=== PATIENT | female | born 1940 | race Caucasian/White ===

== ENCOUNTER 2021-06-19 01:16 | Inpatient (IN) | payer MEDICARE, OTHER ==
[~2021-06-19] VITALS: Ht 162.6 cm; Wt 76.0 kg
[2021-06-19] MEDS ORDERED: ONDANSETRON HCL 4MG/2ML INJ IV STA (01:23)
[2021-06-19] MEDS ORDERED: LEVETIRACETAM 500MG PREMIX 100 ML IV ONE (01:30)
[2021-06-19 02:13] LABS: CLARITY URINE CLEAR (CLEAR); COLOR URINE YELLOW (YELLOW); KETONES URINE TRACE (NEGATIVE); LEUKOCYTE ESTERASE URINE 1+ (NEGATIVE); NITRITE URINE NEGATIVE (NEGATIVE); OCCULT BLOOD URINE 2+ (NEGATIVE); PROTEIN URINE 2+ (NEGATIVE); SPECIFIC GRAVITY URINE 1.026 (1.005-1.030); UROBILINOGEN URINE 0.2 E.U./dL (0.2-1.0)
[2021-06-19 02:17] LABS: BASOPHILS % 0.5 % (0.0-2.0); EOSINOPHILS % 1.1 % (0.0-5.0); HEMATOCRIT. 41.7 % (36.0-48.0); HEMOGLOBIN. 14.4 g/dL (12.0-16.0); LYMPHOCYTES % 15.7 % (20.0-50.0); MEAN CORPUSCULAR HEMOGLOBIN 31.3 pg (28.0-32.0); MEAN CORPUSCULAR VOLUME 90.4 fL (81.0-99.0); MEAN PLATELET VOLUME 9.9 fl (7.4-10.4); MONOCYTES % 6.5 % (2.0-8.0); NEUTROPHILS % 76.2 % (40.0-76.0); PLATELET 201 x1000/uL (130-400); RED BLOOD CELL COUNT 4.62 mill/uL (4.2-5.4); RED CELL DISTRIBUTION WIDTH 13.3 % (11.6-14.6)
[2021-06-19 02:27] LABS: INR 0.9; PROTHROMBIN TIME 10.1 sec (9.6-11.0)
[2021-06-19 02:42] LABS: BG BASE EXCESS -4.1 mmol/L (-2.0-2.0); BG CARBOXYHEMOGLOBIN 0.1 % (0.5-1.5); BG DEOXYHEMOGLOBIN 4.8 % (0.0-5.0); BG FRACTION INSPIRED OXYGEN 100; BG HCO3 ACT 21.1 mmol/L (22.0-26.0); BG METHEMOGLOBIN 0.3 % (0.0-1.5); BG OXYGEN SATURATION 95.2 % (92.0-98.5); BG OXYHEMOGLOBIN 94.8 % (94.0-97.0); BG PCO2 39.3 mmHg (35.0-45.0); BG PH 7.348 (7.350-7.450); BG PO2 81.4 mmHg (75.0-100.0); BG SAMPLE SITE LEFT RADIAL; BG TOTAL HEMOGLOBIN 13.4 g/dL (12.0-18.0); BG VENT MODE MASK - NRB
[2021-06-19 03:03] LABS: CHLORIDE 100 mEq/L (98-107)
[2021-06-19] MEDS ORDERED: INSULIN REGULAR (DRIP) 100 UNITS in SODIUM CHLORIDE 0.9% 99 ML IV SCH (05:30)
[2021-06-19] MEDS ORDERED: CEFTRIAXONE 1 G PREMIX 50 ML IV NR (05:30)
[2021-06-19] MEDS ORDERED: METOPROLOL TARTRATE 5MG/5ML VIAL IV SCH (08:15)
[2021-06-19] MEDS ORDERED: METOPROLOL TARTRATE 5MG/5ML VIAL IV PRN (11:45)
[2021-06-19] MEDS ORDERED: HYDRALAZINE 20MG/ML VIAL IV PRN (12:15)
[2021-06-19] MEDS ORDERED: SODIUM CHLORIDE 0.9% 1,000 ML IV SCH (12:15)
[2021-06-19] MEDS ORDERED: ACETAMINOPHEN 650MG SUPP PR NR (13:15)
[2021-06-19 16:22] LABS: CHLORIDE 110 mEq/L (98-107)
[2021-06-19] MEDS ORDERED: BLOOD SUGAR DIAGNOSTIC STRIP TEST SCH (17:00)
[2021-06-19] MEDS ORDERED: LEVETIRACETAM 500 MG in SODIUM CHLORIDE 0.9% 100 ML IV SCH (17:00)
[2021-06-19] MEDS ORDERED: ACETAMINOPHEN 650MG SUPP PR PRN ×2 (17:00)
[2021-06-19] MEDS ORDERED: ONDANSETRON HCL 4MG/2ML INJ IV PRN (17:00)
[2021-06-19] MEDS ORDERED: DEXTROSE 50% WATER 50ML SYRINGE IV PRN (17:00)
[2021-06-19] MEDS: SODIUM CHLORIDE 0.9% 1,000 ML IV SCH ×2 (17:00→23:40)
[2021-06-19] MEDS ORDERED: DIPHENHYDRAMINE 50MG/ML VIAL IV PRN (17:00)
[2021-06-19] MEDS ORDERED: POTASSIUM CHLORIDE INJ 40 MEQ in DEXT 5% WATER 250 ML IV NR (21:30)
[2021-06-19] MEDS: LEVETIRACETAM 500MG PREMIX 100 ML IV SCH (22:23)
[2021-06-20 04:41] LABS: BASOPHILS % 0.2 % (0.0-2.0); HEMATOCRIT. 41.3 % (36.0-48.0); HEMOGLOBIN. 14.1 g/dL (12.0-16.0); LYMPHOCYTES % 11.3 % (20.0-50.0); MEAN CORPUSCULAR HEMOGLOBIN 30.8 pg (28.0-32.0); MEAN PLATELET VOLUME 9.8 fl (7.4-10.4); MONOCYTES % 7.4 % (2.0-8.0); NEUTROPHILS % 81.1 % (40.0-76.0); PLATELET 172 x1000/uL (130-400); RED BLOOD CELL COUNT 4.59 mill/uL (4.2-5.4); RED CELL DISTRIBUTION WIDTH 13.6 % (11.6-14.6)
[2021-06-20 04:44] LABS: CHLORIDE 113 mEq/L (98-107)
[2021-06-20 04:55] LABS: PHOSPHORUS 3.9 mg/dL (2.5-4.9)
[2021-06-20] MEDS ORDERED: DEXTROSE 50% WATER 50ML SYRINGE IV PRN (05:45)
[2021-06-20] MEDS ORDERED: CEFTRIAXONE 1 G PREMIX 50 ML IV SCH (06:30)
[2021-06-20] MEDS: BLOOD SUGAR DIAGNOSTIC STRIP TEST SCH ×4 (06:51→20:45)
[2021-06-20] MEDS: SODIUM CHLORIDE 0.9% 1,000 ML IV SCH ×3 (06:51→21:50)
[2021-06-20] MEDS: INSULIN LISPRO (HIGH DOSE) 100 UNITS/ML SUBCUT SCH ×4 (07:06→20:46)
[2021-06-20] MEDS: CEFTRIAXONE 1,000 MG in DEXTROSE 5% WATER 50 ML IV SCH (08:33)
[2021-06-20] MEDS: LEVETIRACETAM 500MG PREMIX 100 ML IV SCH ×2 (08:33→21:47)
[2021-06-20] MEDS: PANTOPRAZOLE SODIUM 40 MG/VIAL IV SCH (08:36)
[2021-06-20 15:42] VITALS: BP 137/88
[2021-06-20 17:03] VITALS: BP 126/73
[2021-06-20 17:15] VITALS: BP 137/88
[2021-06-20] MEDS: LORAZEPAM 2MG/ML CPJ IV PRN (17:15)
[2021-06-20 18:00] VITALS: BP 134/73
[2021-06-20] MEDS ORDERED: MAGNESIUM 4 G PREMIX 100 ML IV NR (18:00)
[2021-06-20] MEDS: ENOXAPARIN 40MG/0.4ML SYR SUBCUT SCH (19:19)
[2021-06-20 20:00] VITALS: BP 115/76
[2021-06-20 22:00] VITALS: BP 151/90
[2021-06-20] MEDS ORDERED: INSULIN GLARGINE UD 100 UNITS/ML SYR SUBCUT SCH (22:00)
[2021-06-21] VITALS (12 sets, daily range): BP systolic 122–197; BP diastolic 62–99
[2021-06-21] MEDS: SODIUM CHLORIDE 0.9% 1,000 ML IV SCH ×2 (02:20→08:57)
[2021-06-21] MEDS: BLOOD SUGAR DIAGNOSTIC STRIP TEST SCH ×4 (06:50→20:40)
[2021-06-21] MEDS: CEFTRIAXONE 1,000 MG in DEXTROSE 5% WATER 50 ML IV SCH (08:02)
[2021-06-21] MEDS: INSULIN LISPRO (HIGH DOSE) 100 UNITS/ML SUBCUT SCH ×4 (08:07→20:52)
[2021-06-21] MEDS: HYDRALAZINE 20MG/ML VIAL IV PRN ×2 (08:08→16:44)
[2021-06-21] MEDS: LEVETIRACETAM 500MG PREMIX 100 ML IV SCH ×2 (08:57→20:51)
[2021-06-21] MEDS: PANTOPRAZOLE SODIUM 40 MG/VIAL IV SCH (08:58)
[2021-06-21 09:53] LABS: BASOPHILS % 0.4 % (0.0-2.0); EOSINOPHILS % 1.8 % (0.0-5.0); HEMATOCRIT. 40.7 % (36.0-48.0); LYMPHOCYTES % 15.7 % (20.0-50.0); MEAN PLATELET VOLUME 9.5 fl (7.4-10.4); MONOCYTES % 6.1 % (2.0-8.0); PLATELET 185 x1000/uL (130-400); RED BLOOD CELL COUNT 4.67 mill/uL (4.2-5.4); RED CELL DISTRIBUTION WIDTH 13.8 % (11.6-14.6)
[2021-06-21 10:04] LABS: PHOSPHORUS 2.9 mg/dL (2.5-4.9)
[2021-06-21] MEDS ORDERED: FUROSEMIDE 40MG/4ML VIAL IVP SCH (10:30)
[2021-06-21] MEDS ORDERED: INSULIN GLARGINE UD 100 UNITS/ML SYR SUBCUT NR (11:00)
[2021-06-21 11:02] LABS: BG BASE EXCESS -4.7 mmol/L (-2.0-2.0); BG CARBOXYHEMOGLOBIN 0.5 % (0.5-1.5); BG FRACTION INSPIRED OXYGEN 21; BG HCO3 ACT 18.1 mmol/L (22.0-26.0); BG METHEMOGLOBIN 0.3 % (0.0-1.5); BG OXYHEMOGLOBIN 96.2 % (94.0-97.0); BG PCO2 27.7 mmHg (35.0-45.0); BG PH 7.432 (7.350-7.450); BG PO2 87.6 mmHg (75.0-100.0); BG SAMPLE SITE RIGHT RADIAL; BG TOTAL HEMOGLOBIN 14.2 g/dL (12.0-18.0); BG VENT MODE ROOM AIR
[2021-06-21] MEDS ORDERED: LACTULOSE 20G/30ML UDC PO PRN (12:00)
[2021-06-21] MEDS ORDERED: IPRATROPIUM/ALBUTEROL 0.5-3(2.5)MG/3ML NEB HHN PRN (12:00)
[2021-06-21] MEDS ORDERED: HYDROCODONE/ACETAMINOPHEN 5/325MG TABLET PO PRN (12:00)
[2021-06-21] MEDS ORDERED: NALOXONE HCL 0.4MG/ML VIAL IV PRN (12:15)
[2021-06-21] MEDS ORDERED: INSULIN LISPRO 100 UNITS/ML SUBCUT NR (17:00)
[2021-06-21] MEDS: ENOXAPARIN 40MG/0.4ML SYR SUBCUT SCH (18:53)
[2021-06-21] MEDS: THIAMINE HCL 100MG TABLET PO SCH (20:51)
[2021-06-21] MEDS: INSULIN GLARGINE UD 100 UNITS/ML SYR SUBCUT SCH (21:06)
[2021-06-22] VITALS (12 sets, daily range): BP systolic 119–182; BP diastolic 26–105
[2021-06-22] MEDS: LORAZEPAM 2MG/ML CPJ IV PRN (01:03)
[2021-06-22] MEDS: HYDRALAZINE 20MG/ML VIAL IV PRN ×2 (03:43→05:11)
[2021-06-22] MEDS: BLOOD SUGAR DIAGNOSTIC STRIP TEST SCH ×4 (06:05→19:50)
[2021-06-22 07:27] LABS: BASOPHILS % 0.4 % (0.0-2.0); EOSINOPHILS % 0.8 % (0.0-5.0); HEMATOCRIT. 39.3 % (36.0-48.0); HEMOGLOBIN. 13.6 g/dL (12.0-16.0); LYMPHOCYTES % 10.1 % (20.0-50.0); MEAN CORPUSCULAR VOLUME 86.8 fL (81.0-99.0); MEAN PLATELET VOLUME 9.6 fl (7.4-10.4); MONOCYTES % 9.2 % (2.0-8.0); NEUTROPHILS % 79.5 % (40.0-76.0); PLATELET 192 x1000/uL (130-400); RED BLOOD CELL COUNT 4.52 mill/uL (4.2-5.4); RED CELL DISTRIBUTION WIDTH 13.5 % (11.6-14.6)
[2021-06-22] MEDS: INSULIN LISPRO (HIGH DOSE) 100 UNITS/ML SUBCUT SCH ×4 (07:32→22:08)
[2021-06-22] MEDS: CEFTRIAXONE 1,000 MG in DEXTROSE 5% WATER 50 ML IV SCH (07:32)
[2021-06-22] MEDS: LEVETIRACETAM 500MG PREMIX 100 ML IV SCH (08:24)
[2021-06-22] MEDS: FAMOTIDINE 20MG/2ML VIAL IV SCH (08:24)
[2021-06-22] MEDS: THIAMINE HCL 100MG TABLET PO SCH ×2 (08:24→17:37)
[2021-06-22] MEDS: INSULIN GLARGINE UD 100 UNITS/ML SYR SUBCUT SCH ×2 (10:20→22:07)
[2021-06-22] MEDS ORDERED: SODIUM CHLORIDE 0.9% 250 ML IV ONE (10:45)
[2021-06-22] MEDS ORDERED: METOPROLOL TARTRATE 50MG TABLET PO NR (10:45)
[2021-06-22] MEDS ORDERED: POTASSIUM CHLORIDE 20MEQ TABLET SR PO NR (10:45)
[2021-06-22] MEDS ORDERED: INSULIN GLARGINE UD 100 UNITS/ML SYR SUBCUT NR (13:00)
[2021-06-22] MEDS ORDERED: LEVOFLOXACIN 500MG PREMIX 100 ML IV SCH (16:00)
[2021-06-22] MEDS: ENOXAPARIN 40MG/0.4ML SYR SUBCUT SCH (17:58)
[2021-06-22] MEDS: LEVETIRACETAM 500MG/5ML CUP PO SCH (19:44)
[2021-06-22] MEDS ORDERED: HALOPERIDOL LACTATE 5MG/ML VIAL IM PRN (19:45)
[2021-06-22] MEDS: METOPROLOL TARTRATE 50MG TABLET PO SCH (19:50)
[2021-06-23] VITALS (13 sets, daily range): BP systolic 106–188; BP diastolic 48–95
[2021-06-23] MEDS: LORAZEPAM 2MG/ML CPJ IV PRN (01:22)
[2021-06-23] MEDS: HYDRALAZINE 20MG/ML VIAL IV PRN ×2 (03:40→12:24)
[2021-06-23] MEDS: BLOOD SUGAR DIAGNOSTIC STRIP TEST SCH ×5 (05:48→22:53)
[2021-06-23] MEDS: INSULIN LISPRO (HIGH DOSE) 100 UNITS/ML SUBCUT SCH ×3 (06:01→16:44)
[2021-06-23 06:34] LABS: HEMOGLOBIN. 14.2 g/dL (12.0-16.0); MEAN CORPUSCULAR VOLUME 86.6 fL (81.0-99.0); MEAN PLATELET VOLUME 9.4 fl (7.4-10.4); PLATELET 234 x1000/uL (130-400); RED BLOOD CELL COUNT 4.74 mill/uL (4.2-5.4); RED CELL DISTRIBUTION WIDTH 13.6 % (11.6-14.6)
[2021-06-23] MEDS: THIAMINE HCL 100MG TABLET PO SCH ×3 (08:01→17:54)
[2021-06-23] MEDS: LEVETIRACETAM 500MG/5ML CUP PO SCH ×2 (08:01→22:51)
[2021-06-23] MEDS: FAMOTIDINE 20MG/2ML VIAL IV SCH (08:01)
[2021-06-23] MEDS: METOPROLOL TARTRATE 50MG TABLET PO SCH (08:02)
[2021-06-23] MEDS: INSULIN GLARGINE UD 100 UNITS/ML SYR SUBCUT SCH ×2 (09:47→22:52)
[2021-06-23] MEDS ORDERED: DILTIAZEM HCL 30MG TABLET PO SCH (10:45)
[2021-06-23] MEDS ORDERED: HALOPERIDOL LACTATE 5MG/ML VIAL IM SCH (11:30)
[2021-06-23] MEDS: DILTIAZEM HCL 30MG TABLET PO SCH ×3 (12:24→18:00)
[2021-06-23 12:33] LABS: BG BASE EXCESS -5.2 mmol/L (-2.0-2.0); BG CARBOXYHEMOGLOBIN 0.5 % (0.5-1.5); BG DEOXYHEMOGLOBIN 4.8 % (0.0-5.0); BG FRACTION INSPIRED OXYGEN 21; BG HCO3 ACT 17.5 mmol/L (22.0-26.0); BG METHEMOGLOBIN 0.3 % (0.0-1.5); BG OXYGEN SATURATION 95.2 % (92.0-98.5); BG OXYHEMOGLOBIN 94.4 % (94.0-97.0); BG PH 7.429 (7.350-7.450); BG PO2 72.4 mmHg (75.0-100.0); BG SAMPLE SITE LEFT RADIAL; BG TOTAL HEMOGLOBIN 14.7 g/dL (12.0-18.0); BG VENT MODE ROOM AIR
[2021-06-23] MEDS ORDERED: LEVOFLOXACIN 250MG TABLET PO SCH (15:00)
[2021-06-23 15:31] LABS: PLATELET ESTIMATE NORMAL
[2021-06-23] MEDS: ENOXAPARIN 40MG/0.4ML SYR SUBCUT SCH ×2 (17:53→18:15)
[2021-06-23] MEDS: INSULIN LISPRO 100 UNITS/ML SUBCUT SCH ×2 (17:55→22:00)
[2021-06-23] MEDS: SODIUM CHLORIDE 0.45% 1,000 ML IV SCH (17:56)
[2021-06-23 18:50] LABS: BG CARBOXYHEMOGLOBIN 0.7 % (0.5-1.5); BG DEOXYHEMOGLOBIN 4.8 % (0.0-5.0); BG FRACTION INSPIRED OXYGEN 21; BG HCO3 ACT 16.5 mmol/L (22.0-26.0); BG METHEMOGLOBIN 0.4 % (0.0-1.5); BG OXYGEN SATURATION 95.1 % (92.0-98.5); BG OXYHEMOGLOBIN 94.1 % (94.0-97.0); BG PCO2 25.8 mmHg (35.0-45.0); BG PH 7.424 (7.350-7.450); BG SAMPLE SITE LEFT RADIAL; BG TOTAL HEMOGLOBIN 15.3 g/dL (12.0-18.0); BG VENT MODE ROOM AIR
[2021-06-23 21:59] LABS: CHLORIDE 116 mEq/L (98-107)
[2021-06-24] VITALS (12 sets, daily range): BP systolic 109–158; BP diastolic 60–98
[2021-06-24] MEDS: DILTIAZEM HCL 30MG TABLET PO SCH ×4 (00:32→17:33)
[2021-06-24] MEDS: INSULIN LISPRO 100 UNITS/ML SUBCUT SCH ×3 (02:00→10:35)
[2021-06-24] MEDS: BLOOD SUGAR DIAGNOSTIC STRIP TEST SCH ×3 (02:00→10:25)
[2021-06-24] MEDS: SODIUM CHLORIDE 0.45% 1,000 ML IV SCH ×2 (03:45→13:46)
[2021-06-24] MEDS: LEVETIRACETAM 500MG/5ML CUP PO SCH (08:44)
[2021-06-24] MEDS: THIAMINE HCL 100MG TABLET PO SCH ×2 (08:44→17:32)
[2021-06-24] MEDS ORDERED: FAMOTIDINE 20MG TABLET PO SCH (09:00)
[2021-06-24] MEDS ORDERED: LIDOCAINE HCL 1% 20ML VIAL (Pyxis) INJ ONE (09:12)
[2021-06-24] MEDS: INSULIN GLARGINE UD 100 UNITS/ML SYR SUBCUT SCH (10:35)
[2021-06-24 10:47] LABS: BASOPHILS % 0.2 % (0.0-2.0); EOSINOPHILS % 1.9 % (0.0-5.0); HEMATOCRIT. 38.2 % (36.0-48.0); HEMOGLOBIN. 12.9 g/dL (12.0-16.0); LYMPHOCYTES % 7.5 % (20.0-50.0); MEAN CORPUSCULAR HEMOGLOBIN 30.1 pg (28.0-32.0); MEAN PLATELET VOLUME 9.6 fl (7.4-10.4); MONOCYTES % 6.6 % (2.0-8.0); NEUTROPHILS % 83.8 % (40.0-76.0); PLATELET 199 x1000/uL (130-400); RED BLOOD CELL COUNT 4.29 mill/uL (4.2-5.4); RED CELL DISTRIBUTION WIDTH 13.5 % (11.6-14.6)
[2021-06-24] MEDS ORDERED: ENOXAPARIN 30MG/0.3ML SYR SUBCUT SCH (14:00)
[2021-06-24] MEDS ORDERED: LEVOFLOXACIN 250MG PREMIX 50 ML IV SCH (16:00)
[2021-06-24] MEDS ORDERED: LEVOFLOXACIN 500MG PREMIX 100 ML IV SCH (16:00)
[2021-06-24] MEDS ORDERED: BLOOD SUGAR DIAGNOSTIC STRIP TEST SCH (16:50)
[2021-06-24] MEDS ORDERED: INSULIN LISPRO 100 UNITS/ML SUBCUT SCH (16:50)
[2021-06-24] MEDS ORDERED: LEVOFLOXACIN 250MG TABLET PO SCH (17:00)
== END 2021-06-24 21:22 | DRG 871 ==
LOC: ER 01:16 → MICUSO 05:20 → 3WST 06-20 13:48
PROVIDERS: ADMIT Internal Medicine; ATTEND Internal Medicine
PROC: 4A10X4Z Monitoring of Central Nervous Electrical Activity, External Approach (ICD-10-PCS; principal; 2021-06-22)
PROC: 02HV33Z Insertion of Infusion Device into Superior Vena Cava, Percutaneous Approach (ICD-10-PCS; 2021-06-24)
PROC: B518ZZA Fluoroscopy of Superior Vena Cava, Guidance (ICD-10-PCS; 2021-06-24)
PROC: B548ZZA Ultrasonography of Superior Vena Cava, Guidance (ICD-10-PCS; 2021-06-24)
DX: A41.9 Sepsis, unspecified organism (principal); E11.00 Type 2 diabetes mellitus with hyperosmolarity without nonketotic hyperglycemic-hyperosmolar coma (NKHHC); G93.41 Metabolic encephalopathy; N17.9 Acute kidney failure, unspecified; N39.0 Urinary tract infection, site not specified; E86.0 Dehydration; G40.909 Epilepsy, unspecified, not intractable, without status epilepticus; G93.89 Other specified disorders of brain; I10 Essential (primary) hypertension; M25.78 Osteophyte, vertebrae; M47.9 Spondylosis, unspecified; Z20.822 Contact with and (suspected) exposure to COVID-19; M48.02 Spinal stenosis, cervical region; N31.9 Neuromuscular dysfunction of bladder, unspecified; R65.20 Severe sepsis without septic shock; M47.816 Spondylosis without myelopathy or radiculopathy, lumbar region; Z82.49 Family history of ischemic heart disease and other diseases of the circulatory system; Z91.19 Patient's noncompliance with other medical treatment and regimen
CPT/HCPCS: 36415; 36573; 36600; 70551; 71045; 72148; 74176; 76770; 78580; 80048; 80053; 81003; 82010; 82140; 82375; 82728; 82805; 82962; 83036; 83605; 83615; 83735; 83880; 84100; 84145; 84484; 85025; 85379; 86141; 86850; 86900; 87077; 87186; 87426; 93005; 93306; 93970; 95816; 97110; 97162; 99291; A6261; C1725; C1769; C9113; J0360; J0696; J1200; J1630; J1650; J1815; J1940; J1953; J1956; J2060; J2405; J3475; J3480; J3490; J7030; J7050; J7060; A4315